=== PATIENT | male | born 1970 | race Two or more races ===

== ENCOUNTER 2019-08-16 23:45 | Emergency (ER) | payer MEDICAID ==
[~2019-08-16] VITALS: Ht 175.3 cm; Wt 66.0 kg
[2019-08-17 03:30] VITALS: BP 113/77
== END 2019-08-17 03:31 | disposition home or self-care (01) ==
LOC: ER 23:45
DX: S02.5XXA Fracture of tooth (traumatic), initial encounter for closed fracture (principal); X58.XXXA Exposure to other specified factors, initial encounter; Y93.89 Activity, other specified; Y92.018 Other place in single-family (private) house as the place of occurrence of the external cause
CPT/HCPCS: 99283